=== PATIENT | male | born 1995 | race Caucasian/White ===

== ENCOUNTER 2018-07-28 16:25 | Emergency (ER) | payer MEDICAID, SELFPAY ==
--- NOTE | 2018-07-28 16:41 | NUR.NOTE ---
mother brought pt in because he has been misusing his prescriptions pt denies and suicidal ideation or homicidal ideation denies any current plans of harm to self
[2018-07-28 16:42] VITALS: BP 140/101; PULSE 77; RESP 16; TEMP 36.4; O2SAT 97
--- NOTE | 2018-07-28 16:43 | W.ED.GENAD ---
Discharge Plan Disposition Patient Disposition: HOME Condition: Stable Discharge Details Chief Complaint: PsychEval Clinical Impression: Depression, Heroin addiction Primary Care Provider: None,None ED Provider: Keith Alvarado Home Meds and New Rx's Prescriptions: New Narcan 4 mg/actuation spray,non-aerosol 1 spray IGNACIA ONCE PRN (Reason: opioid overdose) Qty: 2 RF: 0 Continued methadone 5 mg/5 mL Solution 95 mg PO DAILY RF: 0 Discharge Instructions Instructions: Narcotic Abuse (ED), Depression (ED) Additional Instructions: Continue the follow up plan as established by the [facility] and [facility]. Feel free to return to the emergency department immediately for any new or worsening symptoms Referrals: [facility] [Outside] Primary Care Provider [Outside] Discharge Data Discharge Date/Time-TO BE ENTERED AT DEPARTURE: 07/28/18 19:31 Medical Decision Making Patient presenting to the emergency department at request of his mother. Mother states that he has been missing doses of methadone at the [facility] and been using his rescue Klonopin to aid some of his anxiety. Patient states frustration with the [facility] does not feel that they have been giving him the help that he is needed. He has been more depressed recently due to this and has made some suicidal statements to his mother but at this time denies any suicidality specific plan or thoughts. Physical exam is unremarkable at this time beyond patient avoiding eye contact and being withdrawn he is otherwise stable. I do not feel that patient needs one-on-one sitter or requires psychiatric safe clothing but I do feel that providing patient with acute evaluation for additional resources along with possible meeting with addiction counseling service to see if this can help with his addiction. Patient denies any medical complaints given negative exam I do not feel that any labs are required at this time. Patient does state heroin use today. Patient has no signs of respiratory distress at this time. Patient assessed by [facility] addiction counselors who are able to provide patient with additional resources which she was agreeable to. Patient also assessed by [facility] and is interested in possible inpatient addiction services for heroin addiction but has limited resources due to not having any insurance. Patient was given further resources by [facility]. Patient was prescribed Narcan that he can use as needed for any potential overdose as he does state he is using heroin but otherwise I feel that he is able to be safely discharged. Return precautions were thoroughly discussed with patient. After discussion of diagnosis and plan of care patient and mother have no further needs, questions, or concerns and states clear understanding to return to the emergency department for any worsening symptoms. HPI General Mode of arrival: ambulatory. Date/Time Provider Initiated Documentation: 07/28/18 16:29. Limitations to Documentation: no limitations. Information obtained by: patient and RN notes reviewed. History of Present Illness 23 year old M presents to the emergency department with the chief complaint of Drug addiction, suicidal thoughts, described as mild, Quality is described as other (Denies pain ), Patient notes no other symptoms.. Patient did receive the following treatments prior to arrival, other (Klonopin) Related Data Home Medications Medication Instructions Recorded Confirmed methadone 95 mg PO DAILY 07/28/18 07/28/18 naloxone [Narcan] 1 spray IGNACIA ONCE PRN #2 each 07/28/18 Previous Rx's Medication Instructions Recorded naloxone [Narcan] 1 spray IGNACIA ONCE PRN #2 each 07/28/18 Allergies Allergy/AdvReac Type Severity Reaction Status Date / Time No Known Allergies Allergy Unverified 07/28/18 16:44 Review of Systems Constitutional Denies body ache(s), Denies chills, Denies fever(s), Denies weight gain and Denies weight loss Eyes Denies change in vision ENT Denies sore throat and Denies throat swelling Cardiovascular Denies chest pain and Denies dyspnea Respiratory Denies cough and Denies dyspnea Gastrointestinal Denies abdominal pain, Denies diarrhea, Denies nausea and Denies vomiting Genitourinary Denies difficulty urinating and Denies dysuria Endocrine Denies cold intolerance and Denies heat intolerance Hematologic/Lymphatic Denies easy bleeding and Denies easy bruising Allergic/Immunologic Denies throat swelling [facility] Social History Smoking and Tabacco status: Current every day Exam Const General: cooperative Orientation: alert, awake and oriented x3 Limitations: mental status not altered HENMT Head: normal to inspection, normocephalic and atraumatic Ears: hearing grossly normal bilaterally Mouth: moist mucous membranes Eyes General: appearance normal, both eyes and all related structures Pupils: PERRL EOM: EOM intact bilaterally Resp Effort & Inspection: normal respiratory effort, able to speak in complete sentences and no respiratory distress Auscultation: wheezes expiratory wheezes (mild, clears with cough) Cardio Rate: regular rate and not tachycardic Rhythm: regular rhythm Heart Sounds: S1 normal, S2 normal, no click, no gallops, no murmurs and no rubs Neuro General: alert, awake, oriented x3, gait normal, moves all extremities and no focal motor deficits Cognition: normal cognition Speech: speech normal Psych Speech and Movement: speech and movement normal, agitated and speech clear Affect: blunted Attitude: cooperative, guarded and avoids eye contact Thought Process: normal Thought Content: normal
--- NOTE | 2018-07-28 16:49 | ED.GENADUL_ITS ---
Discharge Plan Disposition Patient Disposition: HOME Condition: Stable Discharge Details Chief Complaint: PsychEval Clinical Impression: Depression, Heroin addiction Primary Care Provider: None,None ED Provider: Keith Alvarado Home Meds and New Rx's Prescriptions: New Narcan 4 mg/actuation spray,non-aerosol 1 spray IGNACIA ONCE PRN (Reason: opioid overdose) Qty: 2 RF: 0 Continued methadone 5 mg/5 mL Solution 95 mg PO DAILY RF: 0 Discharge Instructions Instructions: Narcotic Abuse (ED), Depression (ED) Additional Instructions: Continue the follow up plan as established by the [facility] and [facility]. Feel free to return to the emergency department immediately for any new or worsening symptoms Referrals: [facility] [Outside] Primary Care Provider [Outside] Discharge Data Discharge Date/Time-TO BE ENTERED AT DEPARTURE: 07/28/18 19:31 Medical Decision Making Patient presenting to the emergency department at request of his mother. Mother states that he has been missing doses of methadone at the [facility] and been using his rescue Klonopin to aid some of his anxiety. Patient states frustration with the [facility] clinic does not feel that they have been giving him the help that he is needed. He has been more depressed recently due to this and has made some suicidal statements to his mother but at this time denies any suicidality specific plan or thoughts. Physical exam is unremarkable at this time beyond patient avoiding eye contact and being withdrawn he is otherwise stable. I do not feel that patient needs one-on-one sitter or requires psychiatric safe clothing but I do feel that providing patient with acute evaluation for additional resources along with possible meeting with addiction counseling service to see if this can help with his addiction. Patient denies any medical complaints given negative exam I do not feel that any labs are required at this time. Patient does state heroin use today. Patient has no signs of respiratory distress at this time. Patient assessed by [facility] addiction counselors who are able to provide patient with additional resources which she was agreeable to. Patient also assessed by [facility] and is interested in possible inpatient addiction services for heroin addiction but has limited resources due to not having any insurance. Patient was given further resources by [facility]. Patient was prescribed Narcan that he can use as needed for any potential overdose as he does state he is using heroin but otherwise I feel that he is able to be safely discharged. Return precautions were thoroughly discussed with patient. After discussion of diagnosis and plan of care patient and mother have no further needs, questions, or concerns and states clear understanding to return to the emergency department for any worsening symptoms. HPI General Mode of arrival: ambulatory . Date/Time Provider Initiated Documentation: 07/28/18 16:29 . Limitations to Documentation: no limitations . Information obtained by: patient and RN notes reviewed . History of Present Illness 23 year old M presents to the emergency department with the chief complaint of Drug addiction, suicidal thoughts, described as mild, Quality is described as other (Denies pain ), Patient notes no other symptoms.. Patient did receive the following treatments prior to arrival, other (Klonopin) Related Data Home Medications Medication Instructions Recorded Confirmed methadone 95 mg PO DAILY 07/28/18 07/28/18 naloxone [Narcan] 1 spray IGNACIA ONCE PRN #2 each 07/28/18 Previous Rx's Medication Instructions Recorded naloxone [Narcan] 1 spray IGNACIA ONCE PRN #2 each 07/28/18 Allergies Allergy/AdvReac Type Severity Reaction Status Date / Time No Known Allergies Allergy Unverified 07/28/18 16:44 Review of Systems Constitutional Denies body ache(s), Denies chills, Denies fever(s), Denies weight gain and Denies weight loss Eyes Denies change in vision ENT Denies sore throat and Denies throat swelling Cardiovascular Denies chest pain and Denies dyspnea Respiratory Denies cough and Denies dyspnea Gastrointestinal Denies abdominal pain, Denies diarrhea, Denies nausea and Denies vomiting Genitourinary Denies difficulty urinating and Denies dysuria Endocrine Denies cold intolerance and Denies heat intolerance Hematologic/Lymphatic Denies easy bleeding and Denies easy bruising Allergic/Immunologic Denies throat swelling [facility] Social History Smoking and Tabacco status: Current every day Exam Const General: cooperative Orientation: alert, awake and oriented x3 Limitations: mental status not altered HENMT Head: normal to inspection, normocephalic and atraumatic Ears: hearing grossly normal bilaterally Mouth: moist mucous membranes Eyes General: appearance normal, both eyes and all related structures Pupils: PERRL EOM: EOM intact bilaterally Resp Effort & Inspection: normal respiratory effort, able to speak in complete sentences and no respiratory distress Auscultation: wheezes expiratory wheezes (mild, clears with cough) Cardio Rate: regular rate and not tachycardic Rhythm: regular rhythm Heart Sounds: S1 normal, S2 normal, no click, no gallops, no murmurs and no rubs Neuro General: alert, awake, oriented x3, gait normal, moves all extremities and no focal motor deficits Cognition: normal cognition Speech: speech normal Psych Speech and Movement: speech and movement normal, agitated and speech clear Affect: blunted Attitude: cooperative, guarded and avoids eye contact Thought Process: normal Thought Content: normal
[2018-07-28 19:32] VITALS: BP 130/88; PULSE 77; RESP 16; TEMP 36.4; O2SAT 97
== END 2018-07-28 19:31 | disposition home or self-care (01) ==
PROVIDERS: Emergency Provider Nurse Practitioner Family
DX: F41.8 Other specified anxiety disorders (principal); F11.20 Opioid dependence, uncomplicated
CPT/HCPCS: 99284

== ENCOUNTER 2018-07-29 15:13 | Emergency (ER) | payer MEDICAID, SELFPAY ==
[2018-07-29 15:17] VITALS: BP 142/93; PULSE 103; RESP 16; TEMP 37
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
[2018-07-29 16:14] LABS: Abs Immature Grans 0.04 k/cumm (0.0-0.09); Absolute Basophil Count 0.04 k/cumm (0.0-0.2); Absolute Eosinophil Count 0.11 k/cumm (0.0-0.7); Absolute Monocyte Count 0.79 k/cumm (0.11-0.7); Absolute Neutrophil Count 10.36 k/cumm (1.2-6.7); Basophils % 0.3; Eosinophils % 0.8; HCT 50.5 % (40.0-50.0); HGB 17.2 g/dL (13.5-17.5); Immature Grans % 0.3; Lymphocytes % 16.7; Mean Corp. HGB Concentration 34.1 g/dL (32.0-36.0); Mean Corpuscular Hemoglobin 31.9 pg (27.0-33.0); Mean Corpuscular Volume 93.7 fL (80-95); Mean Platelet Volume 10.2 fL (8.0-11.0); Monocytes % 5.8; Neutrophils % 76.1; Platelet Count 227 x1000/uL (130-400); RBC 5.39 m/cumm (4.50-6.00); RBC Distribution Width 12.4 % (11.8-14.1); White Blood Cell Count 13.62 k/cumm (4.4-10.8)
[2018-07-29 16:15] LABS: Absolute Lymphocyte Count 2.27 k/cumm (1.2-3.4)
[2018-07-29 16:23] LABS: Anion Gap 9.8 mmol/L (3-11); BUN 10 mg/dL (7-18); CO2 27.2 mmol/L (21.0-32.0); CREATININE 0.82 mg/dL (0.70-1.30); Calcium 8.8 mg/dL (8.5-10.1); Chloride 105 mmol/L (98-107); ETHANOL BLOOD 40.9 mg/dL (<3); Glucose 88 mg/dL (70-100); Potassium 3.6 mmol/L (3.5-5.1); Sodium 142 mmol/L (136-145)
[2018-07-29 16:37] LABS: *AMPHETAMINES SCREEN URINE Negative (Negative); *BARBITURATES SCREEN URINE Negative (Negative); *BENZODIAZEPINES SCREEN URINE Negative (Negative); Cannabinoids THC Negative (Negative); Cocaine Screen,Urine Negative (Negative); METHADONE URINE SCREEN POSITIVE (Negative); OPIATES URINE SCREEN POSITIVE (Negative)
--- NOTE | 2018-07-29 16:38 | NUR.NOTE ---
mental health in with patient. cpso in doorway.
[2018-07-29 16:42] LABS: Tricyclic Antidepressants Negative (Negative)
[2018-07-29 16:55] LABS: Acetaminophen < 2 ug/mL (10-30)
--- NOTE | 2018-07-29 17:15 | NUR.NOTE ---
patient resting comfortably. cpso in doorway.
--- NOTE | 2018-07-29 18:00 | NUR.NOTE ---
patient resting comfortably. mother present in room, curtain open and cpso in doorway.
[2018-07-29] MEDS: LORazepam 1 MG TAB (18:58)
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
[2018-07-29] MEDS: Nicotine 21 MG/24 HR PATCH TD (19:25)
--- NOTE | 2018-07-29 19:58 | PDOC.MHCN ---
Date of service: 07/29/18 Time of Service: 19:58 Mental Health Crisis Note Presenting Issue How did you arrive at the ED and why did you come: Ildefonso came to the emergency room through the [place] [employer] due to concerns of multiple suicide attempts and suspicion of drug use. Precipitating Factors Ildefonso is anxious, irritable, and guarded. He is reluctant to disclose to hospital staff and this casualty underwriter what has happened. He was willing to talk about his depression, but his responses were guarded. He remains easily agitated and could be at risk of withdrawal from substances and/or overdose. He also reports multiple other suicide attempts he has done in the last 24 hours that indicate he could be agitated over something. He did report he is tired of not being good enough but was unable or unwilling to discuss his needs, wishes, and hopes in regards to what could help him feel better about himself. Disposition BEHAVIOR: agitated but able to redirected. Behavior is also changeable as he states he would like help, but has had some difficulty staying in his room without redirecting. However, he has been able to deescalate with staff and has taken Ativan when given. EYE CONTACT: poor MOOD: depressed, melancholic AFFECT: flat to somnolent, but easily agitated APPETITE: poor SLEEP(trouble falling/staying asleep: poor/reports he has not slept for four days Plan Application for involuntary treatment has been filed. He will stay at [facility] emergency room tonight. No beds are available at hospitals as [facility], and [place] cannot accommodate admissions tonight. [facility] and [facility] do not have any beds either. Signature Clinician's Name/Title: Fernando Lamar MA [facility] [place]
--- NOTE | 2018-07-29 20:22 | PDOC.ERCMPRO ---
Care Management Progress Note INVOLUNTARY FOR INPATIENT PSYCHIATRIC STABILIZATION. Ildefonso struggled when presented with inability to discharge and exit the building to smoke. He was able to regulate with much encouragement and de-escalation support per staff report. He was agreeable to taking oral medications and was sleeping soundly when CM attempted to meet with him. Huddle Participants: Colby Do; RN, Brittnee; CANDI, Fernando; HP, RIP Nash. Safety plan will be established with patient, and care team, to adhere to patient goals, identify restrictions based on behavioral status, address nutrition, and determine allowed personal belongings, tools for hygiene and personal care. Determine level of activity including ambulation, level of supervision, visitors, and determine privileges based on behaviors and level of engagement by patient. Jane Webster; [facility] at [facility] presented to the ED and provided support to Ildefonso and has an apparent positive working relationship with Ildefonso. Jane provided background information to [facility] and [facility] providers. SAFETY PLAN: 1. Will remain on suicide precautions in Paper Clothes 2. Will remain in room under direct supervision of one-on-one staff at all times provided by CPSO, RESEARCH CHEF, BLENDING TECHNICIAN felt cutting machine operator. 3. May have paper cups, plates, finger foods as well as a metal spoon with which to eat meals. [facility] staff will be responsible for accounting of utensils after meals. Ildefonso has a nicotrol inhaler as well. 4. Follow [facility] Management of the Admitted Behavioral Health Patient policy. 5. Comfort bath system only. 6. No personal belongings 7. Visitors: Jane Webster ([facility]), Duane Price (Work Highway Maintainer): Jane reports she is willing to be a support person if Ildefonso struggles to regulate. 8. Permitted to use ED bathroom with escort. Due to INVOLUNTARY status, patient will have second certification with Department of Mental Health Psychiatrist within the next twenty four hours. Patient is currently involuntarily at [facility] and seeking inpatient admission when a bed becomes available. [facility] Frontline Slitter Helper will continue seeking placement. Please contact the Aircraft Ordnance Technician Food Server ([phone]) and [facility] Slitter Helper ([phone]) for any needed changes in the Safety Plan. Safety plan has been provided to interdepartmental care team including Clinical Coordinator, Nursing Highway Maintainer.
--- NOTE | 2018-07-29 20:26 | PDOC.MHCN_ITS ---
Date of service: 07/29/18 Time of Service: 19:58 Mental Health Crisis Note Presenting Issue How did you arrive at the ED and why did you come: Ildefonso came to the emergency room through the [place] [employer] due to concerns of multiple suicide attempts and suspicion of drug use. Precipitating Factors Ildefonso is anxious, irritable, and guarded. He is reluctant to disclose to hospital staff and this automatic typewriter inspector what has happened. He was willing to talk about his depression, but his responses were guarded. He remains easily agitated and could be at risk of withdrawal from substances and/or overdose. He also reports multiple other suicide attempts he has done in the last 24 hours that indicate he could be agitated over something. He did report he is tired of not being good enough but was unable or unwilling to discuss his needs, wishes, and hopes in regards to what could help him feel better about himself. Disposition BEHAVIOR: agitated but able to redirected. Behavior is also changeable as he states he would like help, but has had some difficulty staying in his room without redirecting. However, he has been able to deescalate with staff and has taken Ativan when given. EYE CONTACT: poor MOOD: depressed, melancholic AFFECT: flat to somnolent, but easily agitated APPETITE: poor SLEEP(trouble falling/staying asleep: poor/reports he has not slept for four days Plan Application for involuntary treatment has been filed. He will stay at [facility] emergency room tonight. No beds are available at hospitals as [facility], and [place] cannot accommodate admissions tonight. [facility] and [facility] do not have any beds either. Signature Clinician's Name/Title: Fernando Lamar MA [facility]
--- NOTE | 2018-07-29 20:37 | CMPROGNOTE_ITS ---
Care Management Progress Note INVOLUNTARY FOR INPATIENT PSYCHIATRIC STABILIZATION. Ildefonso struggled when presented with inability to discharge and exit the building to smoke. He was able to regulate with much encouragement and de-escalation support per staff report. He was agreeable to taking oral medications and was sleeping soundly when CM attempted to meet with him. Huddle Participants: Colby Do; RN, Brittnee; CANDI, Fernando; HP, RIP Nash. Safety plan will be established with patient, and care team, to adhere to patient goals, identify restrictions based on behavioral status, address nutrition, and determine allowed personal belongings, tools for hygiene and personal care. Determine level of activity including ambulation, level of supervision, visitors, and determine privileges based on behaviors and level of engagement by patient. Jane Webster; [facility] at [facility] presented to the ED and provided support to Ildefonso and has an apparent positive working relationship with Ildefonso. Jane provided background information to [facility] and [facility] providers. SAFETY PLAN: 1. Will remain on suicide precautions in Paper Clothes 2. Will remain in room under direct supervision of one-on-one staff at all times provided by CPSO, MACHINE III COREMAKER, PHYSICIAN NON INVASIVE CARDIOLOGIST order filler. 3. May have paper cups, plates, finger foods as well as a metal spoon with which to eat meals. [facility] staff will be responsible for accounting of utensils after meals. Ildefonso has a nicotrol inhaler as well. 4. Follow [facility] Management of the Admitted Behavioral Health Patient policy. 5. Comfort bath system only. 6. No personal belongings 7. Visitors: Jane Webster ([facility]), Duane Price (Work Control Clerk Repairs): Jane reports she is willing to be a support person if Ildefonso struggles to regulate. 8. Permitted to use ED bathroom with escort. Due to INVOLUNTARY status, patient will have second certification with Department of Mental Health Psychiatrist within the next twenty four hours. Patient is currently involuntarily at [facility] and seeking inpatient admission when a bed becomes available. [facility] Frontline Domestic Maid will continue seeking placement. Please contact the Donor Recruitment Manager Director Of Physical Therapy ([phone]) and [facility] Domestic Maid ([phone]) for any needed changes in the Safety Plan. Safety plan has been provided to interdepartmental care team including Clinical Coordinator, Nursing Control Clerk Repairs.
[2018-07-30] MEDS: LORazepam 1 MG TAB 2 MG PO ×3 (01:37→20:31)
[2018-07-30 04:44] VITALS: BP 100/62; PULSE 87; RESP 16; TEMP 35.6; O2SAT 97
--- NOTE | 2018-07-30 07:05 | NUR.NOTE ---
assumed care of patient, pharmacy aware of medication request Nursing Note:
[2018-07-30 08:07] VITALS: BP 101/52; PULSE 71; RESP 14; TEMP 36.6; O2SAT 95
[2018-07-30] MEDS: Methadone Liquid 10 MG/ML 95 MG PO (08:08)
--- NOTE | 2018-07-30 08:11 | NUR.NOTE ---
patient medicated per MD order Nursing Note:
--- NOTE | 2018-07-30 08:49 | NUR.NOTE ---
patient eating breakfast, patient's LISWC in room Nursing Note:
[2018-07-30] MEDS: Nicotine 21 MG/24 HR PATCH (09:22)
[2018-07-30] MEDS: LORazepam 1 MG TAB ×3 (09:23→14:02)
--- NOTE | 2018-07-30 09:23 | NUR.NOTE ---
patient took off right arm nicotine patch and new patch applied to left outer arm and nicotrol catridge replaced at 0900 Nursing Note:
--- NOTE | 2018-07-30 10:13 | PDOC.ERCMPRO ---
Care Management Progress Note 07/30-At 0830 this morning, this CM reached out to psychiatric hospitals. [facility]-Spoke with Rupal. Rupal has requested that a referral be faxed to them at [phone] for which it was. Shreya-Spoke with Yelena, No involuntary beds available today. Chandni-Spoke with Maren Gaitan, and Maren requested referral be faxed to [phone] for which it was. [employer]-Left message for a return call. [facility]-Spoke with Roland. Roland requested referral be faxed to [phone]. Huddled with Dr. Metz and with Harris. Amended care plan for limited phone use. Ildefonso has been appropriate and cooperative throughout the night. He has taken medication as it is prescribed. This morning he has been able to call his work clearing supervisor Italia at [phone]. Mom Salty Cartagena is in the waiting room. This CM met with Salty. Salty was asked to leave last evening as Ildefonso escalated when she visited. Salty verbalized understanding that the goal is to keep Ildefonso calm. Discussed that referrals were being sent to other facilities and hopefully Ildefonso will get a bed offer. Salty states that she is going over to [employer] and finalize the insurance so Ildefonso can have insurance. Salty states she will pay for it. Salty's phone number is [phone]. Yunreji informs this CM that she is from Ildefonso's Dad. Ildefonso lives with his dad and Salty lives in an apartment near . Ildefonso is upset with himself as he has relapsed and started using heroin again. Patient is transferring care from [facility] to [facility]. New provider will April Mirza NP. Please note that patient has not been seen by [facility]. Called Access and spoke with Glendy. Glendy will update the chart. New care plan has been formulated and distributed according to appropriate team members. Ildefonso Shipley Involuntary Admission (EE Status) Care Plan 07/30/18 INVOLUNTARY FOR INPATIENT PSYCHIATRIC STABILIZATION. Ildefonso had a good night, was cooperative, and appropriate with staff. He has been taking his medications as prescribed. Huddle Participants: Dr. Metz; Harris, RN; Ragini, RIP. Safety plan will be established with patient, and care team, to adhere to patient goals, identify restrictions based on behavioral status, address nutrition, and determine allowed personal belongings, tools for hygiene and personal care. Determine level of activity including ambulation, level of supervision, visitors, and determine privileges based on behaviors and level of engagement by patient. SAFETY PLAN: 1. Will remain on suicide precautions in Paper Clothes 2. Will remain in room under direct supervision of one-on-one staff at all times provided by CPSO, EMT, NAIL CUTTER, INCIDENT MANAGER soft iron inspector. 3. May have paper cups, plates, finger foods as well as a metal spoon with which to eat meals. [facility] staff will be responsible for accounting of utensils after meals. Ildefonso has a nicotrol inhaler as well. 4. Follow [facility] Management of the Admitted Behavioral Health Patient policy. 5. Comfort bath system only. 6. No personal belongings. 7. Visitors: Jane Webster (Chronic Rn Team Leader at [facility]), Duane Price (Work Shell Press Operator). Lucy Pond and Al Mercado can visit at the discretion of the ED provider and if Ildefonso is agreeable to seeing them. 8. Phone: Per the discretion of the provider based on behaviors. 9. Permitted to use ED bathroom with escort. 10. May have music therapy IPAD and cordless headphones if behavior appropriate. 11. May have crayons, papers, and other activities from the Mental Health activity cart in ED at the discretion of the provider. 12. May have television if available. Due to INVOLUNTARY status, patient will have second certification with Department of Mental Health Psychiatrist within the next twenty four hours. First Certification was signed 07/29 at 1800. Patient is currently involuntarily at [facility] and seeking inpatient admission when a bed becomes available. [facility] Frontline Surgical Attendant will continue seeking placement. Please contact the Regional Transportation Manager Warm In Worker ([phone]) and [facility] Surgical Attendant ([phone]) for any needed changes in the Safety Plan.
--- NOTE | 2018-07-30 10:38 | CMPROGNOTE_ITS ---
Care Management Progress Note 07/30-At 0830 this morning, this CM reached out to psychiatric hospitals. [facility]-Spoke with Rupal. Rupal has requested that a referral be faxed to them at [phone] for which it was. Shreya-Spoke with Yelena, No involuntary beds available today. Chandni-Spoke with Maren Gaitan, and Maren requested referral be faxed to [phone] for which it was. [employer]-Left message for a return call. [facility]-Spoke with Roland. Roland requested referral be faxed to [phone]. Huddled with Dr. Metz and with Harris. Amended care plan for limited phone use. Ildefonso has been appropriate and cooperative throughout the night. He has taken medication as it is prescribed. This morning he has been able to call his work heavy equipment plumbing supervisor Italia at [phone]. Mom Salty Cartagena is in the waiting room. This CM met with Salty. Salty was asked to leave last evening as Ildefonso escalated when she visited. Salty verbalized understanding that the goal is to keep Ildefonso calm. Discussed that referrals were being sent to other facilities and hopefully Ildefonso will get a bed offer. Salty states that she is going over to [employer] [facility] and finalize the insurance so Ildefonso can have insurance. Salty states she will pay for it. Salty's phone number is [phone]. Yunreji informs this CM that she is from Ildefonso's Dad. Ildefonso lives with his dad and Salty lives in an apartment near . Ildefonso is upset with himself as he has relapsed and started using heroin again. Patient is transferring care from [facility] to [facility]. New provider will April Mirza NP. Please note that patient has not been seen by [facility]. Called [facility] and spoke with Glendy. Glendy will update the chart. New care plan has been formulated and distributed according to appropriate team members. Ildefonso Shipley Involuntary Admission (EE Status) Care Plan 07/30/18 INVOLUNTARY FOR INPATIENT PSYCHIATRIC STABILIZATION. Ildefonso had a good night, was cooperative, and appropriate with staff. He has been taking his medications as prescribed. Huddle Participants: Dr. Metz; Harris, RN; Ragini, RIP. Safety plan will be established with patient, and care team, to adhere to patient goals, identify restrictions based on behavioral status, address nutr ition, and determine allowed personal belongings, tools for hygiene and personal care. Determine level of activity including ambulation, level of supervision, visitors, and determine privileges based on behaviors and level of engagement by patient. SAFETY PLAN: 1. Will remain on suicide precautions in Paper Clothes 2. Will remain in room under direct supervision of one-on-one staff at all times provided by CPSO, EMT, CIGAR INSPECTOR, BENCH SCIENTIST instructor creeler. 3. May have paper cups, plates, finger foods as well as a metal spoon with which to eat meals. [facility] staff will be responsible for accounting of utensils after meals. Ildefonso has a nicotrol inhaler as well. 4. Follow [facility] Management of the Admitted Behavioral Health Patient policy. 5. Comfort bath system only. 6. No personal belongings. 7. Visitors: Jane Webster (Chronic Director Loss Prevention at [facility]), Duane Price (Work Pencil Inspector). Lucy Pond and Dad Rogelio can visit at the discretion of the ED provider and if Ildefonso is agreeable to seeing them. 8. Phone: Per the discretion of the provider based on behaviors. 9. Permitted to use ED bathroom with escort. 10. May have music therapy IPAD and cordless headphones if behavior appropriate. 11. May have crayons, papers, and other activities from the Mental Health activity cart in ED at the discretion of the provider. 12. May have television if available. Due to INVOLUNTARY status, patient will have second certification with Department of Mental Health Psychiatrist within the next twenty four hours. First Certification was signed 07/29 at 1800. Patient is currently involuntarily at [facility] and seeking inpatient admission when a bed becomes available. [facility] Frontline Management Planner will continue seeking placement. Please contact the Shift Supervisor Rail Car Repairman ([phone]) and [facility] Cri sis Worker ([phone]) for any needed changes in the Safety Plan.
--- NOTE | 2018-07-30 12:52 | NUR.NOTE ---
patient resting comfortably, bed search continues will Nursing Note:
--- NOTE | 2018-07-30 13:05 | NUR.NOTE ---
patient medicated per MD order, patient given lunch and given new nicotine carttridge. Nursing Note:
--- NOTE | 2018-07-30 13:58 | NUR.NOTE ---
patient reports taking off nicotine patch and putting it in my mouth and seeing if that would work better will inform MD.Nursing Note:
--- NOTE | 2018-07-30 14:04 | NUR.NOTE ---
the nicotine patch was thrown out, by Magda patient observer Nursing Note:
--- NOTE | 2018-07-30 14:59 | NUR.NOTE ---
patient up using restroom and drinking fluids Nursing Note:
--- NOTE | 2018-07-30 15:18 | W.INMHPGNOTE ---
Date of service: 07/30/18 Time of Service: 15:18 Mental Health Crisis Note Presenting Issue How did you arrive at the ED and why did you come: Cecilia was in ER RM 5. He was dressed in paper clothings as per hospital policy. Cecilia has been having SI impulses where he attempted by jumping out of a car, OD'ing on illegal drugs, he attempted to hang himself and a friend had to wrench a gun from the cecilia's hands because of SI statements. Precipitating Factors Cecilia is at high risk because the ameliat assured during his previous visit to the ER that he was not having SI and assured the ES clinician that he was safe to go home. As soon as he left he sought ways to end his life that were explained in the above statement where he tried multiple methods to end his life. Disposition BEHAVIOR: His behavior can be erratic especially if he is confronted with his behavior. EYE CONTACT: Somewhat cooperative MOOD: sullen with angry undercurrent. AFFECT: Angry APPETITE: Good SLEEP(trouble falling/staying asleep: Cecilia was sleepy. Cecilia works multiple hours without any sleep. Plan Cecilia should remain on EE status because cecilia has not been truthful. He told me that at point he would go along with counseling to deal with his multiple mental health and substance abuse and then told me that he would not follow through. The clt told a previous ES clinician that he would be safe and as soon as he left the facility he pursued ways to end his life such as hanging himself and jumping out of a moving car.
--- NOTE | 2018-07-30 15:40 | MHPN_ITS ---
Date of service: 07/30/18 Time of Service: 15:18 Mental Health Crisis Note Presenting Issue How did you arrive at the ED and why did you come: Cecilia was in ER RM 5. He was dressed in paper clothings as per hospital policy. Cecilia has been having SI impulses where he attempted by jumping out of a car, OD'ing on illegal drugs, he attempted to hang himself and a friend had to wrench a gun from the cecilia's hands because of SI statements. Precipitating Factors Cecilia is at high risk because the clt assured during his previous visit to the ER that he was not having SI and assured the ES clinician that he was safe to go ho me. As soon as he left he sought ways to end his life that were explained in the above statement where he tried multiple methods to end his life. Disposition BEHAVIOR: His behavior can be erratic especially if he is confronted with his behavior. EYE CONTACT: Somewhat cooperative MOOD: sullen with angry undercurrent. AFFECT: Angry APPETITE: Good SLEEP(trouble falling/staying asleep: Cecilia was sleepy. Cecilia works multiple hours without any sleep. Plan Cecilia should remain on EE status because cecilia has not been truthful. He told me that at point he would go along with counseling to deal with his multiple mental health and substance abuse and then told me that he would not follow through. The clt told a previous ES clinician that he would be safe and as soon as he left the facility he pursued ways to end his life such as hanging himself and jumping out of a moving car.
--- NOTE | 2018-07-30 18:02 | PDOC.ERCMPRO ---
- If Service Date Differs Date of service: 07/30/18 Time of Service: 18:02 Care Management Progress Note CM meet with Ildefonso at the bedside to complete the second certification with . 2nd cert was approved, NK present at the time of 2nd cert. Ildefonso was able to interact well with the psychiatrist. After meeting with psychiatry he shared with this speech writer the struggles of being addicted to cocaine and heroin. He states he began using at age 19 and that it was the only time he felt normal. Ildefonso states he craves all the time he reports that he has been trying to have his dose increased at [facility] however has been unsuccessful. He states he works a lot and he is often not able to wait at the clinic to see his counselor Ragini. Ildefonso also struggles with nicotine dependency he states he smokes 4 packs of cigarettes a day. He states he removed his nicotine patch today and tried to suck on it to absorb the nicotine. Ildefonso does have a nicotine inhaler as well and nicotine gum will also be available per provider. Ildefonso has been accepted at [facility] this evening pending provider to provider. [facility] will coordinate provider to provider and transportation when Ildefonso is ready for transfer. Ildefonso is engaged with CM during conversations he is able to ask questions related to the transfer and what to expect at time of discharge. CM provided education related to treatment plan including transportation to facility. Ildefonso does not want to be transported by Head Of Sales Promotion and states If it is by Head Of Sales Promotion I will not go. CM provided active listening while Ildefonso processed his concerns related to transportation. Ildefonso wants to be able to have a cigarette on the way to the [facility]. CM encouraged him to use his nicotine inhaler to relieve the symptoms of withdrawal. CM reviewed the requirements of safe transportation. CM spoke with provider, and mental health with concerns that Ildefonso may escalate at time of the transfer. Ildefonso remains involuntary, safety plan in place no changes at this time anticipate he will be discharged this evening to [facility].
[2018-07-30] MEDS: Nicotine 2 MG GUM CH ×2 (18:09→19:58)
--- NOTE | 2018-07-30 18:09 | NUR.NOTE ---
patient given nicotine gum per md order Nursing Note:
--- NOTE | 2018-07-30 18:14 | NUR.NOTE ---
second cert completed, will continue to monitor, patient using phone and being respectful of staff Nursing Note:
--- NOTE | 2018-07-30 18:22 | CMPROGNOTE_ITS ---
- If Service Date Differs Date of service: 07/30/18 Time of Service: 18:02 Care Management Progress Note CM meet with Ildefonso at the bedside to complete the second certification with . 2nd cert was approved, NK present at the time of 2nd cert. Ildefonso was able to interact well with the psychiatrist. 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 He states he began using at age 19 and that it was the only time he felt normal. Ildefonso states he craves all the time he reports that he has been trying to have his dose increased at [facility] however has been unsuccessful. He states he works a lot and he is often not able to wait at the clinic to see his counselor Ragini. Ildefonso also struggles with nicotine dependency he states he smokes 4 packs of cigarettes a day. He states he removed his nicotine patch today and tried to suck on it to absorb the nicotine. Ildefonso does have a nicotine inhaler as well and nicotine gum will also be available per provider. Ildefonso has been accepted at [facility] this evening pending provider to provider. [facility] will coordinate provider to provider and transportation when Ildefonso is ready for transfer. Ildefonso is engaged with CM during conversations he is able to ask questions related to the transfer and what to expect at time of discharge. CM provided education related to treatment plan including transportation to facility. Ildefonso does not want to be transported by Control Valve Technician and states If it is by Control Valve Technician I will not go. CM provided active listening while Ildefonso processed his concerns related to transportation. Ildefonso wants to be able to have a cigarette on the way to the [facility]. CM encouraged him to use his nicotine inhaler to relieve the symptoms of withdrawal. CM reviewed the requirements of safe transportation. CM spoke with provider, and mental health with concerns that Ildefonso may escalate at time of the transfer. Ildefonso remains involuntary, safety plan in place no changes at this time anticipate he will be discharged this evening to [facility].
--- NOTE | 2018-07-30 18:59 | NUR.NOTE ---
report given to Nat RN Nursing Note:
--- NOTE | 2018-07-30 19:06 | PDOC.MHCN ---
Date of service: 07/30/18 Time of Service: 19:06 Mental Health Crisis Note Presenting Issue How did you arrive at the ED and why did you come: Ildefonso remains at [facility] on involuntary status. He has been at the hospital since yesterday after making several suicide attempts over a 24-hour period of time. Precipitating Factors Ildefonso denies current suicidal ideation. He admits to having had thoughts of suicide over the past few days but denies acting on those thoughts. He also admits to having used a large amount of Crack Cocaine and Heroin over the weekend and states that he's just had a rough couple of days. Disposition BEHAVIOR: Cooperative but guarded. EYE CONTACT: Good. MOOD: I am stressed out. AFFECT: Blunted. APPETITE: Unknown. SLEEP(trouble falling/staying asleep: Did not sleep for several days prior to coming to the hospital. Plan Ildefonso has been accepted by the [facility]. Transport will be done via [employer]. Signature Clinician's Name/Title: Lizy Thomas BA, [facility] Executive Creative Director
--- NOTE | 2018-07-30 19:33 | PDOC.MHCN_ITS ---
Date of service: 07/30/18 Time of Service: 19:06 Mental Health Crisis Note Presenting Issue How did you arrive at the ED and why did you come: Ildefonso remains at [facility] on involuntary status. He has been at the hospital since yesterday after making several suicide attempts over a 24-hour period of time. Precipitating Factors Ildefonso denies current suicidal ideation. He admits to having had thoughts of suicide over the past few days but denies acting on those thoughts. He also admits to having used a large amount of Crack Cocaine and Heroin over the weekend and states that he's just had a rough couple of days. Disposition BEHAVIOR: Cooperative but guarded. EYE CONTACT: Good. MOOD: I am stressed out. AFFECT: Blunted. APPETITE: Unknown. SLEEP(trouble falling/staying asleep: Did not sleep for several days prior to coming to the hospital. Plan Ildefonso has been accepted by the [facility]. Transport will be done via [facility]. Signature Clinician's Name/Title: Lizy Thomas BA, [facility] Judicial Law Clerk
[2018-07-30 19:50] VITALS: BP 135/94; PULSE 91; RESP 16; TEMP 36.7; O2SAT 98
--- NOTE | 2018-07-30 19:52 | NUR.NOTE ---
Nursing Note: introduce myself, did set of vs and checked to see if pt needed anything states he is good for now,except that he did want a nicotine cartridge
[2018-07-30 21:53] VITALS: BP 135/94; PULSE 91; RESP 16; TEMP 36.7; O2SAT 98
== END 2018-07-30 21:51 | disposition short-term general hospital (02) ==
PROVIDERS: Physician Assistant; Emergency Provider Emergency Medicine; PCP Nurse Practitioner Family
DX: F32.9 Major depressive disorder, single episode, unspecified (principal); R45.851 Suicidal ideations; F19.10 Other psychoactive substance abuse, uncomplicated
CPT/HCPCS: 36415; 80048; 80307; 99285; 80320; 80329; 85025; 99284

== ENCOUNTER 2024-07-10 18:04 | Outpatient (REF) | payer MEDICAID, SELFPAY ==
[2024-07-10 15:27] LABS: Abs Immature Grans 0.02 10^3/uL (0.0-0.06); Absolute Basophil Count 0.05 10^3/uL (0.0-0.2); Absolute Eosinophil Count 0.08 10^3/uL (0.0-0.7); Absolute Lymphocyte Count 2.36 10^3/uL (1.2-3.4); Absolute Monocyte Count 0.59 10^3/uL (0.1-0.8); Basophils % 0.6 %; Eosinophils % 0.9 %; HGB 15.9 g/dL (13.5-17.5); Immature Grans % 0.2 %; Lymphocytes % 26.2 %; MCHC 33.1 % (32.0-36.0); MCV 97 fL (80-95); MPV 10.8 fL (8.0-11.0); Monocytes % 6.6 %; Neutrophils % 65.5 %; Platelet Count 221 10^3/uL (130-400); RBC 4.97 10^6/uL (4.36-5.78); RDW-SD 42.8 fL
[2024-07-10 16:19] LABS: ALT 29 U/L (16-63); AST 16 U/L (15-37); Albumin 3.9 g/dL (3.4-5.0); Alkaline Phosphatase 130 U/L (46-116); BUN 13 mg/dL (7-18); Bilirubin, Total 0.37 mg/dL (0.2-1.0); CREATININE 0.9 mg/dL (0.70-1.30); Calcium 9.3 mg/dL (8.5-10.1); Chloride 105 mmol/L (98-107); Glucose 105 mg/dL (74-106); Potassium 4.4 mmol/L (3.5-5.1); Sodium 140 mmol/L (136-145); TSH (W/Ref FT4) 0.73 uIU/mL (0.36-3.74)
[2024-07-10 22:30] LABS: Parathyroid Hormone,Intact 40.8 pg/mL (19.0-88.0)
[2024-07-13 10:33] LABS: Lyme Ab w Rflx to Lyme Confirm Negative (Negative)
[2024-07-13 18:38] LABS: Anaplasma phagocytophilum Negative (Negative); B. miyamotoi PCR Negative (Negative); Babesia divergens/MO-1 Negative (Negative); Babesia duncani Negative (Negative); Babesia microti Negative (Negative); Ehrlichia chaffeensis Negative (Negative); Ehrlichia ewingii/canis Negative (Negative); Ehrlichia muris eauclairensis Negative (Negative)
== END 2024-07-10 18:05 | disposition home or self-care (01) ==
LOC: NCHCN 18:04
PROVIDERS: PCP Nurse Practitioner Family; Visit Provider Nurse Practitioner Family
DX: R11.10 Vomiting, unspecified (principal); R53.81 Other malaise
CPT/HCPCS: 80053; 86364; 87798; 83970; 84443; 85025; 86618

== ENCOUNTER 2024-10-21 13:16 | Emergency (ER) | payer MEDICAID, SELFPAY ==
[2024-10-21] VITALS (12 sets, daily range): BP systolic 108–120; BP diastolic 67–78; PULSE 85–102; RESP 14–16; TEMP 36.8; O2SAT 93–99
--- NOTE | 2024-10-21 14:15 | DI.US_ITS ---
Exam(s) US ABDOMEN LIMITED EXAM: US ABDOMEN LIMITED CLINICAL HISTORY: RUQ pain TECHNIQUE: Ultrasound abdomen performed using standard protocol. COMPARISON: No exams were available for comparison FINDINGS: LIVER: Normal size. Normalechogenicity. No focal liver lesions are seen.. GALLBLADDER: No evidence of cholelithiasis. No evidence of wall thickening. No pericholecystic fluid identified. HOPKINS'S SIGN: Negative. BILIARY SYSTEM: No intrahepatic or extrahepatic biliary ductal dilation. RIGHT KIDNEY: Normal size. No evidence of renal calculi. No evidence of hydronephrosis. No suspicious renal mass. No cyst identified. PANCREAS: Normal where visualized. ABDOMINAL AORTA AND IVC: Visualized portions normal caliber. ASCITES: None seen. IMPRESSION: Normal sonographic appearance of the right upper quadrant. DATA REPOSITORY:
[2024-10-21 15:32] LABS: Bilirubin Negative (Negative); Blood Negative (Negative); Clarity Clear (Clear); Glucose Negative (Negative); Ketones Negative (Negative); Leukocyte Esterase Negative (Negative); Nitrite Negative (Negative); Urobilinogen 0.2 mg/dL (Up to 0.2)
--- NOTE | 2024-10-21 15:53 | W.ED.GENAD ---
Discharge Plan Disposition Patient Disposition: Home Condition: Stable Discharge Details Clinical Impression: Abdominal pain, Nausea & vomiting Primary Care Provider: April Mirza ED Provider: Sary Abel Home Meds and New Rx's Prescriptions: New prochlorperazine maleate [Compazine] 10 mg tablet 10 mg PO Q6H PRNQty: 10 0RF prochlorperazine maleate [Compazine] 10 mg tablet 10 mg PO Q6H PRNQty: 10 0RF Continued cetirizine 10 mg tablet 10 mg PO DAILY PRN fluticasone propionate 50 mcg/actuation spray,suspension 2 spray intranasal DAILY Rx Instructions: administer into each nostril methadone 10 mg/mL concentrate 10 mg PO DAILY Patient Comments: Pt states he takes 110 mg of methadone daily - ML, RN 10/21/24 omeprazole 20 mg capsule,delayed release(DR/EC) 20 mg PO DAILY Patient Comments: TAKE ONE CAPSULE BY MOUTH EVERY DAY clonidine HCl 0.1 mg tablet 0.1 mg PO QID PRN Patient Comments: TAKE ONE TABLET BY MOUTH FOUR TIMES A DAY NEEDED FOR ANXIETY promethazine 25 mg tablet 25 mg PO Q6H PRN Patient Comments: TAKE ONE TABLET BY MOUTH EVERY 4 TO 6 HOURS NEEDED FOR NAUSEA naloxone [Narcan] 4 mg/actuation spray,non-aerosol 1 spray IGNACIA ONCE PRN (Reason: opioid overdose) Qty: 2 0RF Discharge Instructions Instructions: Abdominal Pain, Adult ED, Nausea and Vomiting, Adult ED Additional Instructions: You have declined blood work, this would help us give you a better idea of your diagnosis, please follow-up with your primary care physician on the symptoms you are able to In the interim you may take Compazine as needed for nausea and vomiting clear liquid diet as tolerated if you are able to tolerate clear liquids he can progress to saltines toast applesauce Please be reevaluated should you have persistent or worsening symptoms in the aware that you have not been fully evaluated at this visit secondary to lack of blood work Your ultrasound did not show acute abnormality and we visualized your gallbladder and your kidneys Referrals: April Mirza [Primary Care Provider] - 1 day Discharge Data Discharge Date/Time-TO BE ENTERED AT DEPARTURE: 10/21/24 16:20 HPI General Date/Time Provider Initiated Documentation: 10/21/24 14:17. HPI Narrative: 29-year-old male with nausea, vomiting, and abdominal pain since this morning. Symptoms have occurred intermittently in the past, attributed to withdrawal. Abstinent for 90 days. Feels better after resting. No history of abdominal surgeries, chest pain, shortness of breath, or blood in stool/vomitus. Related Data Home Medications ?Medication ?Instructions ?Recorded ?Confirmed naloxone 4 mg/actuation nasal 1 spray intranasal ONCE PRN opioid 07/28/18 10/21/24 spray (Narcan) overdose #2 ea cetirizine 10 mg tablet 10 mg PO DAILY PRN 07/19/23 10/21/24 fluticasone propionate 50 2 spray intranasal DAILY 07/19/23 10/21/24 mcg/actuation nasal spray,suspension methadone 10 mg/mL oral concentrate 10 mg PO DAILY 07/19/23 10/21/24 clonidine HCl 0.1 mg tablet 0.1 mg PO QID PRN 10/21/24 10/21/24 omeprazole 20 mg capsule,delayed 20 mg PO DAILY 10/21/24 10/21/24 release prochlorperazine maleate 10 mg 10 mg PO Q6H PRN #10 tabs 10/21/24 tablet (Compazine) prochlorperazine maleate 10 mg 10 mg PO Q6H PRN #10 tabs 10/21/24 tablet (Compazine) promethazine 25 mg tablet 25 mg PO Q6H PRN 10/21/24 10/21/24 Previous Rx's ?Medication ?Instructions ?Recorded naloxone 4 mg/actuation nasal 1 spray intranasal ONCE PRN opioid 07/28/18 spray (Narcan) overdose #2 ea prochlorperazine maleate 10 mg 10 mg PO Q6H PRN #10 tabs 10/21/24 tablet (Compazine) prochlorperazine maleate 10 mg 10 mg PO Q6H PRN #10 tabs 10/21/24 tablet (Compazine) Allergies Allergy/AdvReac Type Severity Reaction Status Date / Time No Known Allergies Allergy Unverified 10/21/24 13:26 General Stated Complaint: Abd Prob QUINTON: 3 Exam Narrative Exam Narrative: General Appearance: Alert and oriented, in no acute distress. Vital signs: Within normal limits. HEENT: Within normal limits. Respiratory: Within normal limits. Gastrointestinal: Epigastric tenderness without rebound or guarding. Back, Musculoskeletal: No CVA tenderness. Skin: Warm and dry, no rash. Neurological: Normal. Course Vital Signs Vital signs: Vital Signs Temperature 36.8 C 10/21/24 13:22 Pulse 95 H 10/21/24 13:22 Respiratory Rate 14 10/21/24 13:22 Blood Pressure 120/76 10/21/24 13:22 Pulse Oximetry 95 10/21/24 13:22 Temperature 36.8 C 10/21/24 13:48 Temperature Source Oral 10/21/24 13:48 Pulse 90 10/21/24 14:40 Respiratory Rate 14 10/21/24 13:48 Blood Pressure 109/78 10/21/24 14:31 Blood Pressure Mean 84 10/21/24 14:31 Blood Pressure Position Sitting 10/21/24 13:48 Pulse Oximetry 97 10/21/24 14:40 Oxygen Delivery Method Room Air 10/21/24 13:48 Oxygen Flow Rate 0 10/21/24 13:48 Pain Level 7 10/21/24 13:48 Lab/Test Results Lab/Test Results: Laboratory Tests Range/Units 10/21/24 15:25 Urine Color (Yellow) Yellow Urine Clarity (Clear) Clear Urine pH (5-8) 6.0 Ur Specific [place] (1.005-1.025) 1.020 Urine Protein (Neg-Trace) mg/dL Negative Urine Ketones (Negative) mg/dL Negative Urine Blood (Negative) Negative Urine Nitrite (Negative) Negative Urine Bilirubin (Negative) Negative Urine Urobilinogen (Up to 0.2) mg/dL 0.2 Ur Leukocyte Esterase (Negative) Negative Urine Glucose (Negative) mg/dL Negative Medical Decision Making Abdominal ultrasound shows no acute abnormality. Initial Assessment: 29-year-old male with nausea, vomiting, and abdominal pain since this morning. Symptoms previously attributed to withdrawal. Feels better after resting. No history of abdominal surgeries, chest pain, or shortness of breath. ED Course: - Patient refused blood work due to fear of needles. - Offered Emla cream, patient still declined. - Agreed to abdominal ultrasound. - Ultrasound per radiology interpretation and my review shows no evidence of acute abnormality. - Encouraged to follow up with PCP in 1-2 days for reassessment and supportive care. - Return precautions reviewed and patient expressed understanding. Final Assessment: Patient presented with nausea, vomiting, and abdominal pain. Refused blood work but agreed to an abdominal ultrasound which showed no acute abnormality. Recommended follow-up with PCP in 1-2 days and supportive care. Clinical Impression: - Nausea and vomiting - Abdominal pain Disposition: - Follow-Up: Follow up with PCP in 1-2 days for reassessment and supportive care. MDM Components Evaluation: - Number of Differential Diagnoses or Management Options: Nausea and vomiting, abdominal pain - Amount and Complexity of Data Reviewed: Abdominal ultrasound - Risk of Complication and Morbidity or Mortality: Low risk based on current presentation and ultrasound results. Quality:SDOH Health Related Social Needs: No Data to Display PFSH All Active Problems (Updated 10/21/24 @ 15:54 by CHASITY Schwab) Nausea & vomiting (Acute) Abdominal pain (Acute) Medical History (Updated 10/21/24 @ 15:54 by CHASITY Schwab) Vomiting Nasal congestion Seasonal allergic rhinitis Polyp of nasal cavity Acute non-suppurative otitis media Stimulant abuse Psychoactive substance abuse Tobacco user Anxiety disorder Family History (Updated 07/19/23 @ 10:11 by Eleanor Woodard) Father Depression Chronic pain Anxiety Social History (Updated 07/19/23 @ 10:12 by Eleanor Woodard) Smoking/Tobacco Use Status: Current every day Tobacco Type: cigarettes Smoking risk assessment performed?: Yes Alcohol Intake: never Drug use: Current Sobriety Substance use type: does not use Do you feel safe in your relationship?: Yes
== END 2024-10-21 16:20 | disposition home or self-care (01) ==
PROVIDERS: Emergency Provider Physician Assistant; PCP Nurse Practitioner Family
DX: R10.9 Unspecified abdominal pain (principal); R11.2 Nausea with vomiting, unspecified
CPT/HCPCS: 99283; 99284; 80053; 83690; 76705; 81003; 85025